=== PATIENT | male | born 1970 | race Hispanic/Latino ===

== ENCOUNTER 2018-11-20 11:02 | Emergency (ER) | payer OTHER ==
[2018-11-20] MEDS ORDERED: ACETAMINOPHEN 325 MG TAB ONE (11:50)
== END 2018-11-20 11:57 | disposition home or self-care (01) ==
LOC: EDH 11:02
DX: S13.8XXA Sprain of joints and ligaments of other parts of neck, initial encounter (principal); R42 Dizziness and giddiness; W20.8XXA Other cause of strike by thrown, projected or falling object, initial encounter; Y93.89 Activity, other specified; Y92.89 Other specified places as the place of occurrence of the external cause; Y99.8 Other external cause status
CPT/HCPCS: 70450; 72040